=== PATIENT | male | born 1995 | race Caucasian/White ===

== ENCOUNTER 2019-03-02 13:22 | Emergency (ER) | payer SELFPAY ==
--- NOTE | 2019-03-02 13:39 | Emergency Department Report ---
Blank Doc - Documentation Documentation: This is a 23-year-old male that presents with n/v and abdominal pain. This initial assessment/diagnostic orders/clinical plan/treatment(s) is/are subject to change based on patient's health status, clinical progression and re- assessment by fellow clinical providers in the ED. Further treatment and workup at subsequent clinical providers discretion. Patient/guardians urged not to elope from the ED as their condition may be serious if not clinically assessed and managed. Initial orders include: 1- Patient sent to [facility] for further evaluation and treatment 2- labs 3- UA
[2019-03-02 14:27] LABS: Bilirubin,Urine NEG (Negative); Blood,Urine NEG (Negative); Color,Urine Amber (Yellow); Mucus,Urine FEW /HPF; Protein,Urine <15 mg/dL mg/dL (Negative); Urobilinogen,Urine < 2.0 mg/dL (<2.0)
[2019-03-02 14:35] LABS: Basophils # (Auto) 0.1 K/mm3 (0.0-0.1); Basophils % (Auto) 0.9 % (0.0-1.8); Hematocrit 39.9 % (35.5-45.6); Hemoglobin 13.2 gm/dl (11.8-15.2); Lymphocytes # (Auto) 0.7 K/mm3 (1.2-5.4); Lymphocytes % (Auto) 9.3 % (13.4-35.0); Mean Corpuscular HGB Conc 33 % (32-34); Mean Corpuscular Volume 78 fl (84-94); Monocytes # (Auto) 0.7 K/mm3 (0.0-0.8); Monocytes % (Auto) 10.6 % (0.0-7.3); Platelet Count 357 K/mm3 (140-440); Red Blood Count 5.11 M/mm3 (3.65-5.03); Red Cell Distribution Width 15.4 % (13.2-15.2)
[2019-03-02 14:51] LABS: Alanine Aminotransferase 74 units/L (7-56); Albumin 2.7 g/dL (3.9-5); BUN/Creatinine Ratio 8; Blood Urea Nitrogen 8 mg/dL (9-20); Calcium 8.9 mg/dL (8.4-10.2); Hemolysis Index 28
[2019-03-02] MEDS ORDERED: MORPHINE IV ONE (18:47)
[2019-03-02] MEDS ORDERED: ZOFRAN IV ONE (18:47)
[2019-03-02] MEDS ORDERED: NACL 0.9% 1000 ML 1,000 ML IV ONE (18:48)
[2019-03-02] MEDS ORDERED: BENTYL IM ONE (18:48)
[2019-03-02 19:24] VITALS: BP 91/56
[2019-03-02] MEDS ORDERED: TORADOL IV ONE (20:09)
--- NOTE | 2019-03-02 20:14 | Cat Scan Report ---
CT abdomen pelvis w con INDICATION: RLQ pain, hx of crohns. TECHNIQUE: All CT scans at this location are performed using CT dose reduction for ALARA by means of automated e xposure control. COMPARISON: None available. FINDINGS: Lung bases are clear. Liver, gallbladder, spleen, pancreas, kidneys and adrenals are negative. Abdomi nal aorta is normal in size. No adenopathy. Pelvis Postop change in the right lower quadrant, probably from previous distal ileal resection, given the p atient's history. On today's exam, distal (and even mid to distal) small bowel is very markedly infla med and thick wall. More proximal small bowel appears unremarkable. The distal colon is fluid-filled. No significant free fluid. IMPRESSION: 1. . Marked inflammatory change involving the distal and mid to distal small bowel, consistent with a ctive Crohn's disease. Signer Name: Clemente Daley MD Signed: 03/02/2019 8:09 PM Workstation Name: [id number]
[2019-03-02] MEDS ORDERED: SOLU-Medrol IV ONE (20:35)
--- NOTE | 2019-03-02 20:56 | Emergency Department Report ---
ED Abdominal Pain HPI - General Chief Complaint: Abdominal Pain Stated Complaint: SEVERE CHRONIC DISEASE Time Seen by Provider: 03/02/19 13:39 Source: patient Mode of arrival: Ambulatory Limitations: No Limitations - History of Present Illness Initial Comments: Patient is a 23-year-old male presents to the emergency room with complaints of right-sided abdominal pain that began 5 days ago. Has associated nausea, vomiting, diarrhea, chills. He denies any pus in the stool, melena, hematochezia. States he has a history of Crohn's and has not taken his steroids in 2 months due to recently moving to [place] and does not have a doctor. Pt states he has a past surgical history of a partial colon resection with colostomy 3 years ago. He states he also had a rectal abscess with a surgical procedure performed in July 2018. states his last colonoscopy was 8 months ago. He states all of these were done at [facility] in [place], [place]. Denies any allergies to medications. Severity scale (0 -10): 7 - Related Data Previous Rx's Medication Instructions Recorded Last Taken Type Ciprofloxacin HCl [Ciprofloxacin 500 mg PO BID 7 Days #14 tab 03/02/19 Unknown Rx TAB] Ondansetron [Zofran Odt] 4 mg PO Q8HR PRN #14 tab.rapdis 03/02/19 Unknown Rx metroNIDAZOLE [Flagyl] 500 mg PO TID 7 Days #21 tablet 03/02/19 Unknown Rx predniSONE [Deltasone] 40 mg PO QDAY 7 Days #14 tab 03/02/19 Unknown Rx traMADol [Ultram 50 MG tab] 50 mg PO Q6HR PRN #10 tablet 03/02/19 Unknown Rx Allergies Allergy/AdvReac Type Severity Reaction Status Date / Time No Known Allergies Allergy Unverified 03/02/19 13:27 ED Review of Systems ROS: Stated complaint: SEVERE CHRONIC DISEASE Other details as noted in HPI Comment: All other systems reviewed and negative ED Past Medical Hx - Past Medical History Previous Medical History?: Yes Additional medical history: Crohns Disease, rectal abscess - Surgical History Past Surgical History?: Yes Additional Surgical History: small colon resection, colostomy that was reversed, - Social History Smoking Status: Former Smoker Substance Use Type: None, Marijuana - Medications Home Medications: Home Medications Medication Instructions Recorded Confirmed Last Taken Type Ciprofloxacin HCl [Ciprofloxacin 500 mg PO BID 7 Days #14 tab 03/02/19 Unknown Rx TAB] Ondansetron [Zofran Odt] 4 mg PO Q8HR PRN #14 tab.rapdis 03/02/19 Unknown Rx metroNIDAZOLE [Flagyl] 500 mg PO TID 7 Days #21 tablet 03/02/19 Unknown Rx predniSONE [Deltasone] 40 mg PO QDAY 7 Days #14 tab 03/02/19 Unknown Rx traMADol [Ultram 50 MG tab] 50 mg PO Q6HR PRN #10 tablet 03/02/19 Unknown Rx ED Physical Exam - General Limitations: No Limitations General appearance: alert, in no apparent distress - Head Head exam: Present: atraumatic, normocephalic - Eye Eye exam: Present: normal appearance - ENT ENT exam: Present: mucous membranes moist - Respiratory Respiratory exam: Present: normal lung sounds bilaterally. Absent: respiratory distress, wheezes, rales, rhonchi, stridor, chest wall tenderness, accessory muscle use, decreased breath sounds, prolonged expiratory - Cardiovascular Cardiovascular Exam: Present: regular rate, normal rhythm, normal heart sounds. Absent: systolic murmur, diastolic murmur, rubs, gallop - GI/Abdominal GI/Abdominal exam: Present: soft, tenderness (right sided ), guarding (voluntary ), normal bowel sounds. Absent: distended, rebound, rigid - Neurological Exam Neurological exam: Present: alert, oriented X3 - Psychiatric Psychiatric exam: Present: normal affect, normal mood - Skin Skin exam: Present: warm, dry, intact ED Course Vital Signs 03/02/19 03/02/19 13:37 19:20 Temperature 98.3 F 98.4 F Pulse Rate 126 H 90 Respiratory 20 16 Rate Blood Pressure 113/69 Blood Pressure 91/56 [Left] O2 Sat by Pulse 99 100 Oximetry ED Medical Decision Making - Lab Data Result diagrams: 03/02/19 13:45 03/02/19 13:45 Lab Results 03/02/19 03/02/19 03/02/19 Range/Units 13:45 13:45 13:49 WBC 7.0 (4.5-11.0) K/mm3 RBC 5.11 H (3.65-5.03) M/mm3 Hgb 13.2 (11.8-15.2) gm/dl Hct 39.9 (35.5-45.6) % MCV 78 L (84-94) fl MCH 26 L (28-32) pg MCHC 33 (32-34) % RDW 15.4 H (13.2-15.2) % Plt Count 357 (140-440) K/mm3 Lymph % (Auto) 9.3 L (13.4-35.0) % Hand % (Auto) 10.6 H (0.0-7.3) % Eos % (Auto) 0.0 (0.0-4.3) % Baso % (Auto) 0.9 (0.0-1.8) % Lymph # 0.7 L (1.2-5.4) K/mm3 Hand # 0.7 (0.0-0.8) K/mm3 Eos # 0.0 (0.0-0.4) K/mm3 Baso # 0.1 (0.0-0.1) K/mm3 Seg Neutrophils % 79.2 H (40.0-70.0) % Seg Neutrophils # 5.6 (1.8-7.7) K/mm3 Sodium 131 L (137-145) mmol/L Potassium 4.0 (3.6-5.0) mmol/L Chloride 88.0 L (98-107) mmol/L Carbon Dioxide 29 (22-30) mmol/L Anion Gap 18 mmol/L BUN 8 L (9-20) mg/dL Creatinine 1.0 (0.8-1.5) mg/dL Estimated GFR > 60 ml/min BUN/Creatinine Ratio 8 % Glucose 84 (75-100) mg/dL Calcium 8.9 (8.4-10.2) mg/dL Total Bilirubin 1.50 H (0.1-1.2) mg/dL AST 83 H (5-40) units/L ALT 74 H (7-56) units/L Alkaline Phosphatase 309 H (35-129) units/L Total Protein 7.1 (6.3-8.2) g/dL Albumin 2.7 L (3.9-5) g/dL Albumin/Globulin Ratio 0.6 % Lipase 17 (13-60) units/L Urine Color Heather (Yellow) Urine Turbidity Clear (Clear) Urine pH 6.0 (5.0-7.0) Ur Specific [place] 1.016 (1.003-1.030) Urine Protein <15 mg/dl (Negative) mg/dL Urine Glucose (UA) Neg (Negative) mg/dL Urine Ketones 20 (Negative) mg/dL Urine Blood Neg (Negative) Urine Nitrite Neg (Negative) Urine Bilirubin Neg (Negative) Urine Urobilinogen < 2.0 (<2.0) mg/dL Ur Leukocyte Esterase Neg (Negative) Urine WBC (Auto) 2.0 (0.0-6.0) /HPF Urine RBC (Auto) 3.0 (0.0-6.0) /HPF U Epithel Cells (Auto) < 1.0 (0-13.0) /HPF Urine Mucus Few /HPF - Radiology Data Radiology results: report reviewed CT abdomen pelvis w con INDICATION: RLQ pain, hx of crohns. TECHNIQUE: All CT scans at this location are performed using CT dose reduction for ALARA by means of automated exposure control. COMPARISON: None available. FINDINGS: Lung bases are clear. Liver, gallbladder, spleen, pancreas, kidneys and adrenals are negative. Abdominal aorta is normal in size. No adenopathy. Pelvis Postop change in the right lower quadrant, probably from previous distal ileal resection, given the patient's history. On today's exam, distal (and even mid to distal) small bowel is very markedly inflamed and thick wall. More proximal small bowel appears unremarkable. The distal colon is fluid- filled. No significant free fluid. IMPRESSION: 1. . Marked inflammatory change involving the distal and mid to distal small bowel, consistent with active Crohn's disease. Signer Name: Clemente Daley MD Signed: 03/02/2019 8:09 PM Workstation Name: [id number] Transcribed By: TM Dictated By: Clemente Daley MD Electronically Authenticated By: Clemente Daley MD Signed Date/Time: 03/02/192008 - Medical Decision Making Patient is a 23-year-old male presents to the emergency room with complaints of right-sided abdominal pain that began 5 days ago. Has associated nausea, vomiting, diarrhea, chills. He denies any pus in the stool, melena, hematochezia. States he has a history of Crohn's and has not taken his steroids in 2 months due to recently moving to [place] and does not have a doctor. Pt states he has a past surgical history of a partial colon resection with colostomy 3 years ago. He states he also had a rectal abscess with a surgical procedure performed in July 2018. states his last colonoscopy was 8 months ago. He states all of these were done at [facility] in [place], [place]. Denies any allergies to medications. vitals with initially tachycardia which improved to normal otherwise vitals stable. on exam: Right sided abdominal tenderness with voluntary guarding. labs: no leukocytosis, elevated liver enzymes. pt denies any ETOH use, he states he does use marijuana. CT abd pelvis shows: Marked inflammatory change involving the distal and mid to distal small bowel, consistent with active Crohn's disease. pt given pain medication, nausea medication, 1L of NS, and steroids. pt states he is feeling better. pt given prescription for cipro, flagyl, zofran, prednisone, and tramadol. advised to not drive or operate heavy machinery while taking pain medication. advised pt to please take medication as prescribed. drink plenty of fluids and eat a bland diet. Follow-up with a GI doctor and primary care doctor in the next 2-3 days. Return to the emergency room for any new or worsening symptoms. discussed with pt to follow up with GI due to his crohns disease and due to elevated liver enzymes. - Differential Diagnosis crohns flare, colitis, obstruction, fistula, abscess Critical care attestation.: If time is entered above; I have spent that time in minutes in the direct care of this critically ill patient, excluding procedure time. ED Disposition Clinical Impression: Elevated liver enzymes Abdominal pain Qualifiers: Abdominal location: right lower quadrant Qualified Code(s): R10.31 - Right lower quadrant pain Crohns disease Qualifiers: Gastrointestinal tract location: small intestine Digestive disease complication type: without complication Qualified Code(s): K50.00 - Crohn's disease of small intestine without complications Disposition: DC-01 TO HOME OR SELFCARE Is pt being admited?: No Does the pt Need Aspirin: No Condition: Stable Instructions: Crohn Disease (ED) Additional Instructions: please take medication as prescribed. drink plenty of fluids and eat a bland diet. Follow-up with a GI doctor and primary care doctor in the next 2-3 days. Return to the emergency room for any new or worsening symptoms. Prescriptions: Ciprofloxacin HCl [Ciprofloxacin TAB] 500 mg PO BID 7 Days #14 tab predniSONE [Deltasone] 40 mg PO QDAY 7 Days #14 tab metroNIDAZOLE [Flagyl] 500 mg PO TID 7 Days #21 tablet traMADol [Ultram 50 MG tab] 50 mg PO Q6HR PRN #10 tablet PRN Reason: Pain , Severe (7-10) Ondansetron [Zofran Odt] 4 mg PO Q8HR PRN #14 tab.rapdis PRN Reason: Nausea And Vomiting Referrals: PAULETTE BELLA MD [Primary Care Provider] - 2-3 Days [facility] [Provider Group] - 2-3 Days Time of Disposition: 20:56 Print Language: IRANIAN
== END 2019-03-02 20:40 | disposition home or self-care (01) ==
LOC: ED 13:22
DX: R10.31 Right lower quadrant pain (principal); K50.00 Crohn's disease of small intestine without complications; R94.5 Abnormal results of liver function studies; F17.200 Nicotine dependence, unspecified, uncomplicated; Z87.891 Personal history of nicotine dependence; Z79.899 Other long term (current) drug therapy
CPT/HCPCS: 36415; 74177; 80053; 81001; 83690; 85025; 96361; 96372; 96374; 96375; 99284; J0500; J1885; J2405; J2920; J7030; Q9967; J2270